=== PATIENT | male | born 1970 | race Caucasian/White ===

== ENCOUNTER 2017-02-18 07:17 | Emergency (ER) | payer MEDICAID ==
--- NOTE | 2017-02-18 07:43 | EDPHY ---
H & P Time Seen by Provider: 02/18/17 07:42 HPI/ROS: Chief complaint. Nausea vomiting, syncope HPI. A 46-year-old male here by EMS with nausea vomiting that began last night. Also having diarrhea. He has crampy mid abdominal pain. Some chills. He had a brief syncopal episode when he had abdominal cramping and sense of diarrhea. No injury. Denies chest discomfort or shortness of breath. He has not had no previous abdominal history or surgery. He is compliant with medications. He has had previous syncopal episodes. He thinks possible bad food exposure ROS Constitutional. Chills Eyes. no problems with vision ENT. no sore throat, no nasal drainage Cardiovascular. no chest pain Respiratory. no shortness of breath, no cough Abdominal. Crampy mid abdominal pain with nausea vomiting and diarrhea . no problems urinating MS. no calf pain/swelling, no neck/back pain, no joint pain Skin. no rash Lymph. no swollen glands Neuro. Syncope Past Medical/Surgical History: Past medical history seen for schizoaffective disorder, seizure disorder, TBI Social History: Single, daily smoker, denies alcohol Smoking Status: Heavy smoker Physical Exam: General Appearance: Alert well-developed male mild distress signs are stable Eyes: Pupils equal and round no pallor or injection. ENT, Mouth: Mucous membranes are moist. Respiratory: There are no retractions, lungs are clear to auscultation. Cardiovascular: Regular rate and rhythm. Gastrointestinal: Abdomen is soft with mild periumbilical tenderness to palpation. No masses. Normal bowel sounds Neurological: Awake and alert, sensory and motor exams grossly normal. Skin: Warm and dry, no rashes. Musculoskeletal: Neck is supple nontender. Extremities symmetrical, full range of motion. Psychiatric: Patient is oriented X 3, there is no agitation. Constitutional: Initial Vital Signs Temperature (C) 37.6 C 02/18/17 07:36 Heart Rate 83 02/18/17 07:36 Respiratory Rate 16 02/18/17 07:36 Blood Pressure 119/77 02/18/17 07:36 O2 Sat (%) 98 02/18/17 07:36 O2 Delivery Mode Room Air Allergies/Adverse Reactions: Sulfa (Sulfonamide Antibiotics) Allergy (Verified 02/18/17 07:39) Home Medications: Medication Instructions Recorded [place] 07/19/17 Ondansetron Odt [Zofran Odt] 4 mg PO Q4PRN PRN #4 tab 02/18/17 Seroquel 02/18/17 Tegretol 02/18/17 Medical Decision Making - Diagnostics EKG Interpretation: EKG interpreted by me shows normal sinus rhythm with normal interval and axis. QRS is normal there is no significant ST elevation or depression. No arrhythmia. Rate 83 Procedures: IV normal saline. 2 L of saline. Zofran for nausea, monitor ED Course/Re-evaluation: Re-evaluation 9:05 a.m.. Patient is stable. Patient and I discussed laboratory evaluation EKG findings, treatment plan including criteria for return importance of follow-up further evaluation. He expresses understanding and agreement Recheck again at 940 and patient continues to feel better. No chest discomfort. No abdominal pain. No vomiting or diarrhea Differential Diagnosis: Differential diagnosis of vomiting and diarrhea illness includes gastroenteritis , food poisoning, appendicitis, diverticulitis, pancreatitis. I think patient' s syncopal episode was secondary to vasovagal in dehydration. No evidence for acute coronary syndrome - Data Points Laboratory Results: Laboratory Results 02/18/17 07:30 02/18/17 07:30 02/18/17 02/18/17 07:30 07:30 WBC 7.58 10^3/uL 10^3/uL (3.80-9.50) RBC 4.59 10^6/uL 10^6/uL (4.40-6.38) Hgb 14.4 g/dL g/dL (13.7-17.5) Hct 42.2 % % (40.0-51.0) MCV 91.9 fL fL (81.5-99.8) MCH 31.4 pg pg (27.9-34.1) MCHC 34.1 g/dL g/dL (32.4-36.7) RDW 12.4 % % (11.5-15.2) Plt Count 208 10^3/uL 10^3/uL (150-400) MPV 8.8 fL fL (8.7-11.7) Neut % (Auto) 89.7 % H % (39.3-74.2) Lymph % (Auto) 6.7 % L % (15.0-45.0) [place] % (Auto) 2.8 % L % (4.5-13.0) Eos % (Auto) 0.1 % L % (0.6-7.6) Baso % (Auto) 0.3 % % (0.3-1.7) Nucleat RBC Rel Count 0.0 % % (0.0-0.2) Absolute Neuts (auto) 6.80 10^3/uL H 10^3/uL (1.70-6.50) Absolute Lymphs (auto) 0.51 10^3/uL L 10^3/uL (1.00-3.00) Absolute Monos (auto) 0.21 10^3/uL L 10^3/uL (0.30-0.80) Absolute Eos (auto) 0.01 10^3/uL L 10^3/uL (0.03-0.40) Absolute Basos (auto) 0.02 10^3/uL 10^3/uL (0.02-0.10) Absolute Nucleated RBC 0.00 10^3/uL 10^3/uL (0-0.01) Immature Gran % 0.4 % % (0.0-1.1) Immature Gran # 0.03 10^3/uL 10^3/uL (0.00-0.10) Sodium 138 mEq/L mEq/L (134-144) Potassium 4.4 mEq/L mEq/L (3.5-5.2) Chloride 105 mEq/L mEq/L (97-110) Carbon Dioxide 19 mEq/l L mEq/l (22-31) Anion Gap 14 mEq/L mEq/L (8-16) BUN 15 mg/dL mg/dL (7-23) Creatinine 1.0 mg/dL mg/dL (0.7-1.3) Estimated GFR > 60 Glucose 106 mg/dL H mg/dL (70-100) Calcium 9.4 mg/dL mg/dL (8.5-10.4) Total Bilirubin 0.7 mg/dL mg/dL (0.1-1.4) Conjugated Bilirubin 0.3 mg/dL mg/dL (0.0-0.5) Unconjugated Bilirubin 0.4 mg/dL mg/dL (0.0-1.1) AST 26 IU/L IU/L (17-59) ALT 29 IU/L IU/L (21-72) Alkaline Phosphatase 104 IU/L IU/L (38-126) Troponin I 0.015 ng/mL ng/mL (0-0.034) Total Protein 7.7 g/dL g/dL (6.3-8.2) Albumin 4.6 g/dL g/dL (3.5-5.0) Lipase 53.0 IU/L IU/L (23-300) Carbamazepine 6.4 ug/mL ug/mL (4.0-12.0) Medications Given: Discontinued Medications Acetaminophen (Tylenol) 1,000 mg PO EDNOW ONE Stop: 02/18/17 09:04 Last Admin: 02/18/17 09:06 Dose: 1,000 mg Sodium Chloride (Ns) 1,000 mls @ 0 mls/hr IV EDNOW ONE; Wide Open PRN Reason: Protocol Stop: 02/18/17 07:53 Last Admin: 02/18/17 08:35 Dose: 1,000 mls Sodium Chloride (Ns) 1,000 mls @ 0 mls/hr IV EDNOW ONE; Wide Open PRN Reason: Protocol Stop: 02/18/17 07:53 Last Admin: 02/18/17 08:36 Dose: 1,000 mls Loperamide HCl (Imodium) 4 mg PO EDNOW ONE Stop: 02/18/17 07:54 Last Admin: 02/18/17 08:36 Dose: 4 mg Ondansetron HCl (Zofran) 4 mg IVP EDNOW ONE Stop: 02/18/17 07:53 Last Admin: 02/18/17 08:36 Dose: 4 mg Departure - Departure Disposition: Home, Routine, Self-Care Clinical Impression: Vomiting Qualifiers: Vomiting type: unspecified Vomiting Intractability: non-intractable Nausea presence: with nausea Qualified Code(s): R11.2 - Nausea with vomiting, unspecified Syncope Qualifiers: Syncope type: vasovagal syncope Qualified Code(s): R55 - Syncope and collapse Condition: Good Instructions: Gastroenteritis (ED) Additional Instructions: Drink plenty of fluids and stay hydrated. Zofran as needed for nausea and vomiting. You may purchase Imodium at the grocery store to help control diarrhea. Return for worsening symptoms. You may run a fever with this an use Tylenol 1000 mg every 4-6 hours as needed for fever. Recheck in 1-2 days if not improved Referrals: Patient,NotPresent [Unknown] - As per Instructions [facility] [Outside] - 2-3 days, if not improved Prescriptions: Ondansetron Odt [Zofran Odt] 4 mg PO Q4PRN PRN #4 tab PRN Reason: Nausea/Vomiting, Use 1st
[2017-02-18] MEDS ORDERED: NS 1,000 ML IV ONE ×2 (07:52)
[2017-02-18] MEDS ORDERED: ONDANSETRON 4 MG/2 ML VIAL IVP ONE (07:52)
[2017-02-18] MEDS ORDERED: LOPERAMIDE HCL 2 MG CAP PO ONE (07:53)
[2017-02-18 07:58] LABS: % IMMATURE GRANULYOCYTES 0.4 % (0.0-1.1); ABSOLUTE IMMATURE GRANULOCYTES 0.03 10^3/uL (0.00-0.10); ADD DIFF? NO; ADD MORPH? NO; ADD SCAN? NO; ATYPICAL LYMPHOCYTE FLAG 0 (0-99); FRAGMENT RBC FLAG 0 (0-99); HEMATOCRIT 42.2 % (40.0-51.0); HEMOGLOBIN 14.4 g/dL (13.7-17.5); LEFT SHIFT FLG 0 (0-99); LIPEMIA HEMOLYSIS FLAG 90 (0-99); MEAN CELL HEMOGLOBIN 31.4 pg (27.9-34.1); MEAN CELL HEMOGLOBIN CONCENTR. 34.1 g/dL (32.4-36.7); MEAN CELL VOLUME 91.9 fL (81.5-99.8); MEAN PLATELET VOLUME 8.8 fL (8.7-11.7); PLATELET CLUMPS FLAG 10 (0-99); PLATELET COUNT 208 10^3/uL (150-400); RED BLOOD CELL COUNT 4.59 10^6/uL (4.40-6.38); RED CELL DISTRIBUTION WIDTH 12.4 % (11.5-15.2)
[2017-02-18 08:27] LABS: TROPONIN I 0.015 ng/mL (0-0.034)
[2017-02-18 08:38] LABS: ALANINE AMINOTRANSFERASE 29 IU/L (21-72); ALBUMIN 4.6 g/dL (3.5-5.0); ALKALINE PHOSPHATASE 104 IU/L (38-126); ANION GAP 14 mEq/L (8-16); ASPARTATE AMINOTRANSFERASE 26 IU/L (17-59); BILIRUBIN,TOTAL 0.7 mg/dL (0.1-1.4); BILIRUBIN-CONJUGATED 0.3 mg/dL (0.0-0.5); BILIRUBIN-UNCONJUGATED 0.4 mg/dL (0.0-1.1); CALCIUM 9.4 mg/dL (8.5-10.4); CARBON DIOXIDE 19 mEq/l (22-31); CHLORIDE 105 mEq/L (97-110); GLOMERULAR FILTRATION RATE > 60; GLUCOSE 106 mg/dL (70-100); POTASSIUM 4.4 mEq/L (3.5-5.2); SODIUM 138 mEq/L (134-144); TEGRETOL (CARBAMAZEPINE) 6.4 ug/mL (4.0-12.0); TOTAL PROTEIN 7.7 g/dL (6.3-8.2)
--- NOTE | 2017-02-18 08:48 | CPEKG ---
Heart Rate: 83 RR Interval: 723 P-R Interval: 144 QRSD Interval: 88 QT Interval: 384 QTC Interval: 452 P [place]: 59 QRS [place]: 68 T Wave [place]: 44 EKG Severity - NORMAL ECG - EKG Impression: SINUS RHYTHM Electronically Signed By: Sam Caceres 18-Feb-2017 15:11:34
[2017-02-18] MEDS ORDERED: ACETAMINOPHEN 500 MG TAB PO ONE (09:03)
[2017-02-18 09:37] VITALS: TEMP 100.2
[2017-02-18 10:15] VITALS: BP 108/67; PULSE 93; RESP 14; O2SAT 94
== END 2017-02-18 10:15 | disposition home or self-care (01) ==
DX: R11.2 Nausea with vomiting, unspecified (principal); R55 Syncope and collapse; E86.9 Volume depletion, unspecified; F17.200 Nicotine dependence, unspecified, uncomplicated
CPT/HCPCS: 96374; J2405

== ENCOUNTER 2017-02-27 23:34 | Emergency (ER) | payer MEDICAID ==
--- NOTE | 2017-02-27 23:43 | EDPHY ---
H & P HPI/ROS: Chief Complaint: Alcohol intoxication, chest pain HPI: 46-year-old male with a longstanding history of chronic alcohol abuse and schizoaffective disorder was found outside of a liquor store this evening. On EMS arrival the patient states that he was having some chest pain in his left chest. Currently is without complaint. Did not receive any medications from EMS. Also states that he has a remote history of a stroke is having some difficulty speaking. He does admit to drinking multiple alcoholic beverages this evening. Denies any fevers or chills. No vomiting. No shortness of breath. Is currently without complaint. ROS: 10 point Review of Systems is negative except as noted in the HPI. PMH: Schizoaffective disorder, bipolar disorder, chronic alcohol abuse Medications: Tegretol, Seroquel, Cogentin Social History: Positive smoking, heavy alcohol, no recreational drug use Family History: non-contributory Physical Exam: Gen: Awake, Alert, slurred speech, smells strongly of alcohol HEENT: Nose: no rhinorrhea Eyes: PERRLA, EOMI Mouth: Moist mucosa Neck: Supple, no JVD Chest: nontender, lungs clear to auscultation Heart: S1, S2 normal, no murmur Abd: Soft, non-tender, no guarding Back: no CVA tenderness, no midline tenderness Ext: no edema, non-tender Skin: no rash Neuro: CN II-XII intact, Sensation grossly intact, Strength 5/5 in bilateral upper and lower extremities - Medical/Surgical History Hx Asthma: No Hx Chronic Respiratory Disease: No Hx Diabetes: No Hx Cardiac Disease: No Hx Renal Disease: No Hx Cirrhosis: No Hx Alcoholism: No Hx HIV/AIDS: No Hx Splenectomy or Spleen Trauma: No Other PMH: PMH: schicoaffective, Seizures, TBI - Social History Smoking Status: Heavy smoker Constitutional: Initial Vital Signs Temperature (C) 36.6 C 02/27/17 23:40 Heart Rate 85 02/27/17 23:40 Respiratory Rate 20 02/27/17 23:40 Blood Pressure 102/73 02/27/17 23:40 O2 Sat (%) 95 02/27/17 23:40 O2 Delivery Mode Room Air Allergies/Adverse Reactions: Sulfa (Sulfonamide Antibiotics) Allergy (Verified 02/18/17 07:39) Home Medications: Medication Instructions Recorded Cogentin 02/18/17 Ondansetron Odt [Zofran Odt] 4 mg PO Q4PRN PRN #4 tab 02/18/17 Seroquel 02/18/17 Tegretol 02/18/17 Medical Decision Making - Diagnostics EKG Interpretation: ECG time midnight: Sinus rhythm with a rate of 81, normal axis, normal intervals, no acute ST or T-wave changes. Impression: Normal ECG ED Course/Re-evaluation: Patient is awake and appropriate. Ambulating unassisted to the bathroom. No current complaints. Patient admitting that he did not have any chest pain only said that so that he could have a bed to sleep tonight. No acute medical problems noted. Medically cleared for the [facility] Departure - Departure Disposition: Home, Routine, Self-Care Clinical Impression: Alcoholic intoxication Condition: Good Instructions: Alcohol Intoxication (ED), Chlordiazepoxide (By mouth) Additional Instructions: Please seek help to decrease your alcohol consumption. Referrals: [facility],. [Clinic] - As per Instructions
--- NOTE | 2017-02-28 00:03 | CPEKG ---
Heart Rate: 81 RR Interval: 741 P-R Interval: 140 QRSD Interval: 84 QT Interval: 408 QTC Interval: 474 P [place]: 55 QRS [place]: 71 T Wave [place]: 52 EKG Severity - NORMAL ECG - EKG Impression: SINUS RHYTHM Electronically Signed By: Ashutosh Gil 28-Feb-2017 00:46:53
[2017-02-28] MEDS ORDERED: CHLORDIAZEPOXIDE 25MG PREPK#6 BTL TAKEHOME ONE (00:58)
[2017-02-28 02:02] VITALS: BP 111/74; PULSE 88; RESP 18; TEMP 97.2; O2SAT 96
== END 2017-02-28 02:02 | disposition home or self-care (01) ==
LOC: EDUNIT#
DX: F10.129 Alcohol abuse with intoxication, unspecified (principal); F17.200 Nicotine dependence, unspecified, uncomplicated